=== PATIENT | male | born 1935 | race Caucasian/White ===

== ENCOUNTER → 2017-05-18 | Outpatient (CLI) | payer MEDICARE ==
[~2017-05-18] MED LIST: ASPIRIN; LEVO175T9 PO; LIOT5TAB8 PO; MELO-106 PO; MULTIVITAMIN; RANI150T7 PO
== END | disposition home or self-care (01) ==
LOC: RAH 13:49
PROVIDERS: ATTEND Internal Medicine
DX: N20.0 Calculus of kidney (principal)
CPT/HCPCS: 76770

== ENCOUNTER → 2023-03-03 | Outpatient (CLI) | payer OTHER ==
[~2023-03-03] MED LIST changes: +LIOT5TAB11 PO; -LIOT5TAB8 PO
== END | disposition home or self-care (01) ==
LOC: SHCH 12:42
PROVIDERS: ATTEND Internal Medicine Cardiovascular Disease
DX: I87.2 Venous insufficiency (chronic) (peripheral) (principal); I87.1 Compression of vein
CPT/HCPCS: 93970

== ENCOUNTER 2023-04-20 06:26 | Day surgery (SDC) | payer OTHER ==
[2023-04-17 10:05] LABS: BASOPHILS # (AUTO) 0.02 K/uL (0.00-0.20); BASOPHILS % (AUTO) 0.3 % (0.0-5.0); EOSINOPHILS # (AUTO) 0.03 K/uL (0.00-0.70); EOSINOPHILS % (AUTO) 0.5 % (0.0-8.0); HEMATOCRIT 44.1 % (42-54); IMMATURE GRANULOCYTE ABSOLUTE 0.01 K/uL (0-1); LYMPHOCYTES # (AUTO) 0.9 K/uL (1.0-4.8); LYMPHOCYTES % (AUTO) 14.2 % (21.0-51.0); MEAN CORPUSCULAR HEMOGLOBIN 30.7 pg (27.0-33.0); MEAN CORPUSCULAR HGB CONC 32.4 g/dL (32.0-36.0); MEAN CORPUSCULAR VOLUME 94.6 fL (79-99); MONOCYTES # (AUTO) 0.7 K/uL (0.1-1.0); MONOCYTES % (AUTO) 10.1 % (3.0-13.0); NEUTROPHILS # (AUTO) 4.9 K/uL (1.8-7.7); NEUTROPHILS % (AUTO) 74.7 % (40.0-77.0); PLATELET COUNT (AUTO) 201 K/uL (130-400); RED BLOOD CELL COUNT(AUTO) 4.66 MIL/uL (4.50-6.20); RED CELL DISTRIBUTION WIDTH 13.7 % (11.0-15.5); WHITE BLOOD COUNT (AUTO) 6.6 K/uL (4.8-10.8)
[2023-04-17 10:09] LABS: CREATININE 0.8 mg/dL (0.5-1.5); POTASSIUM 3.7 mmol/L (3.5-5.1)
[2023-04-17 10:15] VITALS: BP 155/77; PULSE 105; RESP 18
[2023-04-17 10:44] LABS: INR < 0.93 (0.85-1.15); PROTHROMBIN TIME 10.8 SEC (9.6-11.6)
[2023-04-17 10:46] LABS: PARTIAL THROMBOPLASTIN TIME 28.5 SEC (26.3-35.5)
[2023-04-20] VITALS (9 sets, daily range): BP systolic 106–146; BP diastolic 47–77; PULSE 66–77; RESP 13–17
[~2023-04-20] VITALS: Ht 180.3 cm; Wt 89.4 kg
[~2023-04-20 06:26] MED LIST changes: -ASPIRIN; +LEVO100T12 PO; -LEVO175T9 PO; -MELO-106 PO; -MULTIVITAMIN; -RANI150T7 PO; +VERA40TA5 PO
[2023-04-20] MEDS ORDERED: 0.9%NACL 1000ML 1,000 ML IV ONE (06:31)
[2023-04-20] MEDS ORDERED: LIDOCAINE HCL 1% MDV 50ML VIAL ONE (08:53)
[2023-04-20] MEDS ORDERED: HEPARIN 10,000 UNIT/10ML (1,000 UNIT/ML) VIAL ONE ×3 (08:53→11:48)
[2023-04-20] MEDS ORDERED: MEPERIDINE-PF 25 MG/ML SYG ONE ×4 (09:13→12:03)
[2023-04-20] MEDS ORDERED: MIDAZOLAM HCL 1 MG/ML 2ML VIAL ONE ×4 (09:14→12:04)
[2023-04-20] MEDS ORDERED: ISOPROTERENOL HCL 0.2 MG/ML AMP/VIAL/BAG ONE (10:18)
[2023-04-20] MEDS ORDERED: PROTAMINE SULFATE 10 MG/ML 5 ML VIAL ONE (12:59)
[2023-04-20] MEDS ORDERED: APIX2.5T PO (14:04)
[2023-04-20] MEDS ORDERED: APIXABAN 2.5 MG TABLET PO ONE (21:00)
[2023-04-26] MEDS ORDERED: LATA2.5D14 OP (10:56)
[2023-04-26] MEDS ORDERED: APIX5TAB PO (10:57)
== END 2023-04-20 16:35 | disposition home or self-care (01) ==
LOC: DAH 06:26
PROVIDERS: ATTEND Internal Medicine Cardiovascular Disease
DX: I47.19 Other supraventricular tachycardia (principal); I49.1 Atrial premature depolarization; I87.2 Venous insufficiency (chronic) (peripheral); I10 Essential (primary) hypertension; E03.9 Hypothyroidism, unspecified; I45.10 Unspecified right bundle-branch block; E05.90 Thyrotoxicosis, unspecified without thyrotoxic crisis or storm; I25.2 Old myocardial infarction; Z79.899 Other long term (current) drug therapy; Z79.01 Long term (current) use of anticoagulants; Z82.3 Family history of stroke
CPT/HCPCS: 80048; 85025; 85610; 85730; 36415; 93005; 93653; 93623; 93655; 85347 ×6; C1894 ×5; C1732 ×2; C1730 ×3; A4649 ×2; J7030; J3490 ×2; J2720; J1644 ×4; J2250 ×4; J2175 ×4; A4215; A4222; A4221; A4663; A4216; A4606; A4223 ×3; 99156; 99157

== ENCOUNTER → 2023-06-13 | Outpatient (CLI) | payer OTHER ==
[~2023-06-13] MED LIST changes: +LATA2.5D14 OP; -VERA40TA5 PO
[2023-06-13 12:13] LABS: BASOPHILS # (AUTO) 0.03 K/uL (0.00-0.20); BASOPHILS % (AUTO) 0.7 % (0.0-5.0); EOSINOPHILS # (AUTO) 0.03 K/uL (0.00-0.70); EOSINOPHILS % (AUTO) 0.7 % (0.0-8.0); HEMATOCRIT 42.9 % (42-54); IMMATURE GRANULOCYTE ABSOLUTE 0.01 K/uL (0-1); LYMPHOCYTES % (AUTO) 20.7 % (21.0-51.0); MEAN CORPUSCULAR HEMOGLOBIN 30.4 pg (27.0-33.0); MEAN CORPUSCULAR HGB CONC 31.9 g/dL (32.0-36.0); MEAN CORPUSCULAR VOLUME 95.1 fL (79-99); MONOCYTES # (AUTO) 0.4 K/uL (0.1-1.0); MONOCYTES % (AUTO) 8.5 % (3.0-13.0); NEUTROPHILS # (AUTO) 3.2 K/uL (1.8-7.7); NEUTROPHILS % (AUTO) 69.2 % (40.0-77.0); PLATELET COUNT (AUTO) 259 K/uL (130-400); RED BLOOD CELL COUNT(AUTO) 4.51 MIL/uL (4.50-6.20); RED CELL DISTRIBUTION WIDTH 13.7 % (11.0-15.5); WHITE BLOOD COUNT (AUTO) 4.6 K/uL (4.8-10.8)
[2023-06-13 12:15] LABS: INR <= 0.93 (0.85-1.15); PROTHROMBIN TIME 10.8 SEC (9.6-11.6)
[2023-06-13 12:16] LABS: CREATININE 0.7 mg/dL (0.5-1.5); POTASSIUM 4.1 mmol/L (3.5-5.1)
== END | disposition home or self-care (01) ==
LOC: LAB 10:15
PROVIDERS: ATTEND Internal Medicine Cardiovascular Disease
DX: I87.2 Venous insufficiency (chronic) (peripheral) (principal); I87.1 Compression of vein; I47.10 Supraventricular tachycardia, unspecified; M79.89 Other specified soft tissue disorders
CPT/HCPCS: 36415; 80048; 85025; 85610; 85730

== ENCOUNTER 2025-04-01 21:40 | Observation (INO) | payer OTHER ==
[~2025-04-01] VITALS: Ht 180.3 cm; Wt 80.3 kg
[~2025-04-01 21:40] MED LIST changes: +ASPI-1005 PO; +ATOR40TA69 PO; +DILT120C12 PO; +FURO20TA4 PO; +GABA300S3 PO; -LATA2.5D14 OP; +LATA2.5D7 OP; -LEVO100T12 PO; +LEVO100T4 PO; +PHARMACY COMMUNICATION MISC ONE; +POTA-200 PO; +VIT1CAPS47 PO
[2025-04-01 22:16] LABS: IMMATURE GRANULOCYTE ABSOLUTE 0.01 K/uL (0-1); NUCLEATED RED BLOOD CELLS 0.0 % (0.0-0.19); PLATELET COUNT (AUTO) 298 K/uL (130-400); RED BLOOD CELL COUNT(AUTO) 4.93 MIL/uL (4.50-6.20); RED CELL DISTRIBUTION WIDTH 14.5 % (11.0-15.5); WHITE BLOOD COUNT (AUTO) 5.8 K/uL (4.8-10.8)
--- NOTE | 2025-04-01 22:17 | EKG ---
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
[2025-04-01 22:22] LABS: CREATININE 0.9 mg/dL (0.5-1.3); GLOMERULAR FILTR. RATE CALC 83.0 mL/min (>90); GLUCOSE,RANDOM 121.0 mg/dL (70-105); SODIUM SERUM 140.0 mmol/L (136-145); UREA NITROGEN, BLOOD 19.0 mg/dL (7-18)
[2025-04-01 22:23] LABS: INR 0.97 (0.85-1.15)
[2025-04-01 22:27] LABS: CREATINE KINASE, TOTAL 39.0 U/L (21-232)
--- NOTE | 2025-04-01 22:29 | ERN ---
General Chief Complaint: Palpitations Stated Complaint: PALPITATIONS Time Seen by MD: 21:41 History of Present Illness Initial Comments 89-year-old male who presents for palpitations. Patient says that he has been in his normal state of health. Today he thought episodes of palpitations and some dizziness. No chest pain. He feels a fast heart rate. He reports that episodes last in between one and 5 minutes and wax and wane. EMS was called and found the patient to be in a rapid atrial rhythm a rhino 170. On arrival here he has stable vital signs. Other vital signs stable for EMS. Patient reports he at similar episode a few years ago. He had an ablation done by Dr. De Santiago with good effect. He does take daily diltiazem 180 mg. No blood thinners. Allergies: Coded Allergies: No Known Drug Allergies (Unverified Allergy, Unknown, 01/08/14) Home Meds Active Scripts Atorvastatin Calcium (LIPITOR) 40 Mg Tablet, 40 MG PO HS, #60 TAB Prov:SAHWANDA NUNEZ [facility] 08/09/24 Aspirin (ASPIRIN 81MG CHEW TAB) 81 Mg Tab.chew, 81 MG PO DAILY, #60 TAB.CHEW Prov:SHAWANDA NUNEZ [facility] 08/09/24 Reported Medications Diltiazem HCl (Diltiazem ER) 120 Mg Cap.er.12h, 1 CAP PO DAILY for 30 Days, #30 CAP 0 Refills 08/08/24 Latanoprost (Latanoprost) 0.005 % Drops, 1 DROP OP HS, ML 0 Refills 08/08/24 Gabapentin (Gabapentin) 300 Mg/6 Ml (6 Ml) Solution, 300 MG PO HS, ML 08/08/24 Vit C/E/Zn/Coppr/Lutein/Zeaxan (Preservision Areds 2 Softgel) 250MG-90MG Capsule, 1 EACH PO BID, CAP 08/08/24 Potassium Chloride (Potassium Chloride) 10 Meq Tab.er.prt, 10 MEQ PO ACBKFST 08/08/24 Furosemide (Furosemide) 20 Mg Tablet, 20 MG PO ACBKFST, TAB 08/08/24 Liothyronine Sodium (Liothyronine Sodium) 5 Mcg Tablet, 5 MCG PO ACBKFST, TAB 08/08/24 Levothyroxine Sodium (Synthroid 100 Mcg Tab) 100 Mcg Tablet, 100 MCG PO ACBKFST, TAB 08/08/24 Past Medical History Past Medical History: A-Fib, CAD, Other Medical History Other: SVT Past Surgical History: Other Surgical History Other: CARDIAC ABLATION 2023 DR. DE SANTIAGO, PROSTATE ROS Dictation CONSTITUTIONAL: No chills, no fever, no weakness, no diaphoresis, no malaise. HEAD/FACE: No signs of trauma. EENT: No eye pain, no blurred vision, no tearing, no double vision, no ear pain, no ear discharge, no nose pain, no nasal congestion, no throat pain, no throat swelling, no mouth pain. RESPIRATORY: No cough, no orthopnea, no SOB, no stridor, no wheezing. CARDIOVASCULAR: Palpitations or dizziness, paroxysmal. GASTROINTESTINAL/ABDOMINAL: No abdominal pain, no constipation, no diarrhea, no nausea, no vomiting. GENITOURINARY: No abnormal discharge, no dysuria, no frequent urination, no hematuria. No complaints of pain in the genitals. MUSCULOSKELETAL: No back pain, no gout, no joint pain, no joint swelling, no muscle pain, no muscle stiffness, no neck pain. INTEGUMENTARY: No change in color, no change in hair/nails, no dryness, no lesion, no lumps, no rash. NEUROLOGICAL/PSYCH: No anxiety, not depressed, no emotional problem, no hea dache, no numbness, no pre-existing deficit, no history of seizures, no tremors, no weakness. HEMATOLOGIC/LYMPHATIC: Not anemic, no history of blood clots, no apparent bleeding, no bruising, glands not swollen. All Systems Negative, Except as Noted. Physical Exam Physical Exam Dictation VITAL SIGNS: Reviewed. GENERAL APPEARANCE: Alert, oriented x3, no acute distress. HEAD AND FACE: Non-traumatic. EYES: PERRL, pink conjunctivas, eyelid no trauma, anterior chamber clear. EARS: Pinnas intact and no signs of trauma or erythema. Ear canals clear and no discharge. TMs no erythema. NOSE: No discharge, no bleeding. OROPHARYNX: Mouth normal, teeth no caries, tongue pink. Pharynx clear, no erythema. Tonsils no exudates, no abscesses noted. Mucous membrane moist. NECK: Supple, non-tender, no thyromegaly, no masses, no JVD, no bruits. BREAST: Deferred. CHEST: No tenderness, no crepitus, no paradoxical movement, no retractions. LUNGS: Clear, well-ventilated, symmetric, no rales, no wheezing, no rhonchi, no stridor, good breath sounds bilaterally. HEART: Regular rate, regular rhythm, no murmur, no gallops. VASCULAR: No peripheral edema. ABDOMEN: Soft, positive bowel sounds, nondistended, no guarding, nontender, no rebound, no masses no hepatomegaly, no splenomegaly, no Noriega's sign, no hernias. RECTAL: Deferred. GENITAL: Deferred. NEUROLOGICAL: Normal speech, gross motor function intact, gross sensory function intact. MUSCULOSKELETAL: Neck nontender, full range of motion, back nontender, full range of motion. EXTREMITIES: Nontender, full range of motion. SKIN: Color pink, dry, no turgor, no rash, no lacerations, no abrasions, no contusions. LYMPHATICS: Deferred. Results Laboratory and Microbiology Lab and Micro Result Laboratory Tests Test 04/01/25 22:03 White Blood Count 5.8 K/uL (4.8-10.8) Red Blood Count 4.93 MIL/uL (4.50-6.20) Hemoglobin 15.0 g/dL (14.0-18.0) Hematocrit 45.3 % (42-54) Mean Corpuscular Volume 91.9 fL (79-99) Mean Corpuscular Hemoglobin 30.4 pg (27.0-33.0) Mean Corpuscular Hemoglobin Concent 33.1 g/dL (32.0-36.0) Red Cell Distribution Width 14.5 % (11.0-15.5) Platelet Count 298 K/uL (130-400) Mean Platelet Volume 9.2 fL (7.5-10.5) Immature Granulocyte % (Auto) 0.2 % (0-1) Neutrophils (%) (Auto) 68.7 % (40.0-77.0) Lymphocytes (%) (Auto) 20.2 % (21.0-51.0) L Monocytes (%) (Auto) 9.9 % (3.0-13.0) Eosinophils (%) (Auto) 0.5 % (0.0-8.0) Basophils (%) (Auto) 0.5 % (0.0-5.0) Neutrophils # (Auto) 4.0 K/uL (1.8-7.7) Lymphocytes # (Auto) 1.2 K/uL (1.0-4.8) Monocytes # (Auto) 0.6 K/uL (0.1-1.0) Eosinophils # (Auto) 0.03 K/uL (0.00-0.70) Basophils # (Auto) 0.03 K/uL (0.00-0.20) Absolute Immature Granulocyte (auto 0.01 K/uL (0-1) Nucleated Red Blood Cells 0.0 % (0.0-0.19) Prothrombin Time 10.3 SEC (9.6-11.6) Prothromb Time International Ratio 0.97 (0.85-1.15) Activated Partial Thromboplast Time 25.8 SEC (26.3-35.5) L Sodium Level 140 mmol/L (136-145) Potassium Level 3.7 mmol/L (3.5-5.1) Chloride Level 107 mmol/L (101-111) Carbon Dioxide Level 26 mmol/L (21-32) Blood Urea Nitrogen 19 mg/dL (7-18) H Creatinine 0.9 mg/dL (0.5-1.3) Glomerular Filtration Rate Calc 83 mL/min (>90) Random Glucose 121 mg/dL (70-105) H Total Calcium 8.7 mg/dL (8.5-10.1) Magnesium Level 2.10 mg/dL (1.80-2.40) Total Creatine Kinase 39 U/L (21-232) # Troponin I High Sensitivity 30 ng/L (4-75) B-Type Natriuretic Peptide 68 pg/mL (0-100) MDM CC: On and off palpitations Historian: Patient Comorbidities: Advanced age, cardiac arrhythmia, fluid overload, hypothyroidism Limitations by social determinants of health: None Differential diagnosis: Electrolyte abnormality, arrhythmia, CHF, atrial fibrillation, ACS, thyroid abnormality, other. Initial vital signs stable, pulse 85 sinus on the monitor. While in the ED, patient had an episode of tachycardia. EKG obtained. EKG shows atrial tachycardia, rate 174, right bundle branch block morphology, right axis, no STEMI. Independently interpreted by me. Labs show no leukocytosis no anemia. Coags stable. Chemistry panel shows stable electrolytes. Patient received 20 mg diltiazem push. Converted to sinus rhythm. Chest x-ray per my independent interpretation shows no cardiomegaly pleural effusions or focal infiltrates. Repeat EKG: Irregular sinus type rhythm possibly sick sinus syndrome, rate 73, right bundle-branch block morphology, no STEMI. Independently interpreted by me. Patient is in a paroxysmal SVT rhythm. He has had arrhythmias in the past and he sees Dr. Pratt. We will admit for telemetry monitoring and cardiology consultation. Hospitalist consulted for admission. ED Course Orders Procedure Category Date Status Time Cbc With Differential LAB 04/01/25 Complete 21:43 Prothrombin Time With LAB 04/01/25 Complete INR 21:43 Chest 1vw RAD 04/01/25 Taken 21:43 12 Lead Ekg Tracing- EKG 04/01/25 Complete Technical 21:43 Magnesium LAB 04/01/25 Complete 21:43 Creatine Kinase, Total LAB 04/01/25 Complete 21:43 Troponin I High LAB 04/01/25 Complete Sensitivity 21:43 Urinalysis Profile LAB 04/01/25 Logged 21:43 Partial LAB 04/01/25 Complete Thromboplastin Time 21:43 Basic Metabolic Panel LAB 04/01/25 Complete 21:43 B-Type Natriuretic LAB 04/01/25 Complete Peptide 21:43 Influenza Type A & B, LAB 04/01/25 In Process Rapid 21:43 Thyroid Stimulating LAB 04/01/25 Logged Hormone 22:21 Diltiazem 25mg Inj PHA 04/01/25 Complete (Cardizem 25mg Inj) 22:30 12 Lead Ekg Tracing- EKG 04/01/25 Logged Technical 23:00 Current Medications Medications (Trade) Dose Ordered Sig/Edinson Route PRN Reason Start Time Stop Time Status Last Admin Dose Admin Diltiazem HCl (CARDIzem 25MG INJ) 16 mg ONCE ONCE IVP 04/01/25 22:30 04/01/25 22:31 DC 04/01/25 22:30 Vital Signs Date Time Temp Pulse Resp B/P (MAP) Pulse Ox O2 Delivery O2 Flow Rate FiO2 04/01/25 22:30 150 110/76 04/01/25 21:42 98.1 85 20 110/72 99 0 DX & DISP Disposition: Inpatient (Hospitalist) Departure Impression: Primary Impression: Paroxysmal SVT (supraventricular tachycardia) Critical Time: 30 minutes (Critical Care Procedure NoteAuthorized and Performed by: meTotal critical care time: Approximately 36 minutesDue to a high probability of clinically significant, life threatening deterioration, the patient required my highest level of preparedness to intervene emergently and I personally spent this critical care time directly and personally managing the patient. This critical care time included obtaining a history; examining the patient; pulse oximetry; ordering and review of studies; arranging urgent treatment with development of a management plan; evaluation of patient's response to treatment; frequent reassessment; and, discussions with other provid ers.This critical care time was performed to assess and manage the high probability of imminent, life-threatening deterioration that could result in multi-organ failure. It was exclusive of separately billable procedures and treating other patients and teaching time.Please see MDM section and the rest of the note for further information on patient assessment and treatment.) Condition: Stable Referrals: JUAN RAMON RUTHERFORD (PCP) ANNABELLA JOEL DO Apr 01, 2025 22:29
--- NOTE | 2025-04-01 23:07 | HMCIMG ---
EXAM: CR Chest, 1 view CLINICAL HISTORY: Chest pain. COMPARISON: Chest radiograph dated 08/07/2024. FINDINGS: Mild diaphragmatic elevation and lower lobe compressive atelectasis bilaterally. The lungs show no infiltrates or other acute findings. No pleural effusion or pneumothorax. The cardiomediastinal silhouette is within normal limits. No acute osseous abnormality. IMPRESSION: No acute cardiopulmonary process is evident. Mild diaphragmatic elevation and lower lobe compressive atelectasis bilaterally. Compared to the prior study, there is no significant interval change. /Ponca
[2025-04-01 23:13] LABS: INFLUENZA TYPE A Negative For Type A (NEGATIVE); INFLUENZA TYPE B Negative For Type B (NEGATIVE)
--- NOTE | 2025-04-01 23:16 | HP ---
History of Present Illness Reason for Visit: palpitations History of Present Illness Mr. Ge is a 89-year-old male that was seen and examined today on 04/01/2025. Patient reports that he came to the emergency department with a chief complaint of palpitations. Onset was today at 7:00 p.m.. Location is chest. Duration is constant. Character is described as fluttering. There was no alleviating factors. There was no aggravating factors. Patient reports associated dizziness. Today in the emergency department CBC unremarkable, chemistry unremarkable, EKG showed AFib with a RVR at a rate in the 170s. Patient responded well to one dose of Cardizem 16 mg in the emergency department. Currently patient's heart rate is in the 80s still in atrial fibrillation. 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 Past Medical History Patient History: Family history: Cardiovascular disease MOTHER, Onset:Unknown Sudden MOTHER, Onset:Unknown No Family History of: Cancer Chronic obstructive lung disease Family history: Alzheimer's disease Family history: Asthma Family history: Diabetes mellitus Family history: Hypertension Parkinson's disease Stroke ADDITIONAL PAST MEDICAL HISTORY: [Atrial fibrillation, patient denies any other prior health history] SOCIAL HISTORY: [Negative for smoking. Patient drinks alcohol about twice a week usually two glasses of wine, patient denies drug use. Patient lives with his , Maribell Louise. Patient is typically independent of all his ADLs. Patient denies difficulty pain is bills. SURGICAL HISTORY: [Cardioversion, cardiac ablation, prostate surgery, bilateral knee surgery, thyroidectomy, partial parathyroidectomy] Review of Systems General: No Fever, No Chills, No Night Sweats, No Fatigue, No Malaise, No Appetite, No Other HEENT: No Head Aches, No Visual Changes, No Eye Pain, No Ear Pain, No Dysphasia, No Sinus Congestion, No Post Nasal Drip, No Sore Throat, No Other Pulmonary: No Dyspnea, No Cough, No Pleuritic Chest Pain, No Other Cardiovascular: Palpitations; No: Chest Pain, Orthopnea, Paroxysmal Noc. Dyspnea, Edema, Lt Headedness, Other Gastrointestinal: No: Nausea, Vomiting, Abdominal Pain, Diarrhea, Constipation, Melena, Hematochezia, Other Genitourinary: No Dysuria, No Frequency, No Incontinence, No Hematuria, No Retention, No Other Musculoskeletal: No: other, neck pain, shoulder pain, arm pain, back pain, hand pain, leg pain, foot pain Skin: No Urticaria, No Rash, No Other Neurological: No: Weakness, Numbness, Incoordination, Change in speech, Confusion, Seizures, Other Allergies: Coded Allergies: No Known Drug Allergies (Unverified Allergy, Unknown, 01/08/14) Scheduled Aspirin (Aspirin 81MG Chew Tab), 81 MG PO DAILY Atorvastatin Calcium (Lipitor), 40 MG PO HS Diltiazem HCl (Diltiazem ER), 1 CAP PO DAILY, (Reported) Furosemide (Furosemide), 20 MG PO ACBKFST, (Reported) Gabapentin (Gabapentin), 300 MG PO HS, (Reported) Latanoprost (Latanoprost), 1 DROP OP HS, (Reported) Levothyroxine Sodium (Synthroid 100 Mcg Tab), 100 MCG PO ACBKFST, (Reported) Liothyronine Sodium (Liothyronine Sodium), 5 MCG PO ACBKFST, (Reported) Potassium Chloride (Potassium Chloride), 10 MEQ PO ACBKFST, (Reported) Vit C/E/Zn/Coppr/Lutein/Zeaxan (Preservision Areds 2 Softgel), 1 EACH PO BID, (Reported) Exam Vital Signs Vital Signs Date Time Temp Pulse Resp B/P (MAP) Pulse Ox O2 Delivery O2 Flow Rate FiO2 04/01/25 23:00 70 18 106/72 95 Room Air* 0 21 04/01/25 21:42 98.1 General Appearance: Alert, Oriented X3, Cooperative, mild distress HEENT: Atraumatic, EOMI Respiratory: Clear to auscultation, Normal air movement, NL respiratory effort Cardiovascular: Normal S1, Normal S2, Other (Atrial fibrillation) Abdominal: Normal bowel sounds, Soft, No tenderness Extremities: No edema Skin: No significant lesion Neuro: Normal gait, Normal speech, Strength at 5/5 X4 ext, Sensation intact, Cranial nerves 3-12 NL Psych/Mental Status: Mental status NL, Mood NL, Thoughts/Content NL Assessment/Plan ASSESSMENT: [ AFib with a RVR, POA PLAN: [ Admit patient to pccu as inpatient status. Place patient on telemetry monitoring. Patient will be followed by cardiology service. Consider resuming home medications once they have been reconciled. At time of admission home medications has been reconciled. For now: Metoprolol 12.5 mg by mouth twice daily, 1st dose now Administer metoprolol 5 mg IV every 5 minutes as needed for AFib RVR with heart rate greater than 120 beats per minute max three doses. Aspirin 81 mg by mouth once daily GI prophylaxis, famotidine DVT prophylaxis, Lovenox ADVANCED CARE PLANNING 1. Which of the following were discussed? Hospice Care - Yes Therapeutic options - yes Advance Directives - Yes - patient states he does not have any advance directives in place at this time, however his can make decisions for him if he becomes unable Other discussions - patient wishes to remain a full code at this time 2. Discussed with who? Patient 3. Voluntary nature of this service was explained to the patient? Yes 4. Amount of time spent - ___16 minutes____ 5. Reviewed by Physician? (if this service was performed by NPP) Yes This document was generated in part using voice recognition software, occasional wrong word or sound alike substitutions may have occurred due to the inherent limitations of voice recognition software. Read the chart carefully and recognize using context, where the substitutions have occurred. Although every effort was made to edit the content, wood model maker and typing errors may occur ATTESTATION BY PHYSICIAN I have seen and examined the patient. I reviewed the documentation, medical decision making, and treatment plan as noted by the mid-level provider above. I agree with the findings and plan of care. ] MITCH CONTRERAS [facility] Apr 01, 2025 23:16
[2025-04-01] MEDS ORDERED: MAGNESIUM 2GM PREMIX 50ML 50 ML IV PRN (23:30)
[2025-04-01] MEDS ORDERED: PoTASSium chloRIDE 20MEQ ER 20 MEQ ERTAB PO PRN (23:30)
[2025-04-01] MEDS ORDERED: PoTASSium chl 10% ELIXIR 20MEQ 20 MEQ/15 ML UDCUP PO PRN (23:30)
[2025-04-01] MEDS ORDERED: LACTULOSE 20 GM/30 ML UDCUP PO PRN (23:30)
[2025-04-01 23:34] LABS: APPEARANCE,URINE CLEAR (CLEAR); GLUCOSE, URINE (UA) NEGATIVE (NEGATIVE); LEUKOCYTE ESTERASE ,URINE NEGATIVE Leu/uL (NEGATIVE); NITRATE,URINE NEGATIVE (NEGATIVE); OCCULT BLOOD,URINE NEGATIVE (NEGATIVE)
[2025-04-01 23:41] LABS: ADD UA MICROSCOPIC NO
[2025-04-02] MEDS ORDERED: IOHEXOL 350 MG/ML 100ML INFUS..BTL IV ONE (00:52)
[2025-04-02] MEDS ORDERED: HEParin-NS 1,000 UNIT/500 ML 0 ML IV ONE (00:52)
[2025-04-02] MEDS ORDERED: SODIUM BICARB 50MEQ 50ML VIAL 0 ML ONE (00:52)
[2025-04-02] MEDS ORDERED: LIDOCAINE HCL 400MG/20ML VIAL ONE (00:52)
--- NOTE | 2025-04-02 03:59 | NUR ---
REPORT GIVEN TO SEA MICHAELS AT THIS TIME
[2025-04-02 04:00] VITALS: BP 117/66; PULSE 80; RESP 16; TEMP 98.8
--- NOTE | 2025-04-02 04:10 | NUR ---
PATIENT RECEIVED AT THIS TIME. PATIENT ALERT, ORIENTED AND FOLLOWING COMMANDS. ROOM AIR, AFIB RATE CONTROLLED ON THE BEDSIDE MONITOR. NO COMPLAINTS OF PAIN OR SOB AT THIS TIME. VS STABLE. PATIENT REPORTS NOT HAVING HIS HOME MEDICATIONS WITH HIM AT THIS TIME. NURSE ADVISED TO HAVE FAMILY BRING THEM IN THE AM. WILL FOLLOW UP IN THE AM.
--- NOTE | 2025-04-02 06:50 | NUR ---
patient arrived to unit via wheelchair, assited to restroom by procedure writer. report given to incoming nurse.
[2025-04-02 07:35] LABS: IMMATURE GRANULOCYTE ABSOLUTE 0.02 K/uL (0-1); NUCLEATED RED BLOOD CELLS 0.0 % (0.0-0.19); PLATELET COUNT (AUTO) 281 K/uL (130-400); RED BLOOD CELL COUNT(AUTO) 4.90 MIL/uL (4.50-6.20); RED CELL DISTRIBUTION WIDTH 14.7 % (11.0-15.5); WHITE BLOOD COUNT (AUTO) 5.4 K/uL (4.8-10.8)
[2025-04-02 07:55] LABS: CREATININE 0.8 mg/dL (0.5-1.3); GLOMERULAR FILTR. RATE CALC 86.0 mL/min (>90); GLUCOSE,RANDOM 94.0 mg/dL (70-105); PHOSPHORUS 3.8 mg/dL (2.5-4.9); SODIUM SERUM 145.0 mmol/L (136-145); UREA NITROGEN, BLOOD 20.0 mg/dL (7-18)
[2025-04-02 08:00] VITALS: BP 126/68; PULSE 73; RESP 18; TEMP 97.4
[2025-04-02 08:05] VITALS: O2SAT 98
[2025-04-02] MEDS: FAMOTIDINE 20MG TAB PO SCH (08:05)
[2025-04-02] MEDS: ASPIRIN 81 MG EC TAB PO SCH (08:05)
[2025-04-02] MEDS: ENOXAPARIN SODIUM 40 MG/0.4 ML SYRINGE SQ SCH (08:07)
--- NOTE | 2025-04-02 09:31 | EKG ---
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
--- NOTE | 2025-04-02 09:35 | NUR ---
DCP: HOME Sw states he remains able to complete ADLS on his own. Lives at home with Natali [phone]. Uses no DME or in home care services, reports he is active and drives. [facility] or Betina DOMINGUEZ in [place]. Uses [facility] or [facility] in [place] for rx needs. Pt denies dc needs and will return home at dc
--- NOTE | 2025-04-02 09:47 | CONS ---
[facility]OLOG[facility] CONSULTATION NOTE Date Patient Seen: Apr 02, 2025 Time of Visit: 09:44 Reason for Consultation: PSVT History of Present Illness: Patient is a 89-year-old male established at the [facility] with Dr. Desai. He has a past medical history of coronary artery disease by coronary CTA (70-80% proximal OM1, proximal LAD 20-30%, proximal D1 20-30%), venous insufficiency, remote spontaneous subarachnoid hemorrhage, venous insufficiency with history of ablation, minimal compression of the deep venous system, history of paroxysmal SVT requiring adenosine ni the past, status post ablation by Dr. Lynch in 2023 on diltiazem 180 mg daily, right bundle branch block, mild LV systolic dysfunction with the EF of 45-50% (previously 55-60 in 2022) and grade 1 diastolic dysfunction, moderate left atrial enlargement and only minimal regurgitant valvular heart disease. Patient presented with complaint of palpitations, tachycardia, and associated dizziness with multiple episodes lasting approximately 5 minutes duration. Patient received a total of 2 mg diltiazem push and converted to sinus rhythm. WBC count normal, potassium 3.7-4.2, magnesium 2.1, TSH normal at 3.68. High sensitivity troponin negative. BNP negative at 68. Influenza a/B negative. Past Medical History: coronary artery disease by coronary CTA (70-80% proximal OM1, proximal LAD 20- 30%, proximal D1 20-30%), venous insufficiency, remote spontaneous subarachnoid hemorrhage, venous insufficiency with history of ablation, minimal compression of the deep venous system, history of paroxysmal SVT requiring adenosine ni the past, status post ablation by Dr. Lynch in 2023 on diltiazem 180 mg daily, right bundle branch block, mild LV systolic dysfunction with the EF of 45-50% (previously 55-60 in 2022) and grade 1 diastolic dysfunction, moderate left atrial enlargement and only minimal regurgitant valvular heart disease, hypothyroidism Past Surgical History: 05/20[address]blation [address] RGSV [address] Valentine in [facility]. 06/20/2023 bilateral common femoral venograms revealing a 36% compression of right external iliac vein otherwise normal study. Both Knees 2012 Prostate Cancer 2007 Family History: History of stroke Social History: Nonsmoker, occasional ETOH Home Meds: Aspirin 81 MG Tablet Delayed Release 1 tablet Orally Once a day Latanoprost Melatonin Potassium Chloride ER 10 MEQ Tablet Extended Release 1 tablet with food Orally daily Furosemide 20 MG Tablet 1 tablet Orally Once a day Gabapentin 100 MG Capsule 1 capsule Orally Once a day PreserVision AREDS 2 - Capsule 1 capsule Orally daily Levothyroxine Sodium 100 MCG Tablet 1 tablet in the morning on an empty stomach Orally Once a day B12 5000 MCG Tablet Sublingual as directed Sublingual once a week , Notes to Pharmacist: 2,5000mcg Prevagen Liothyronine Sodium 5 mcg TABLET 1 tab po daily Oral dilTIAZem HCl ER 180 MG Tablet Extended Release 24 Hour 1 tablet Orally Once a day Current Meds: Current Medications Medications Dose Ordered Sig/Edinson Start Time Stop Time Status Last Admin Potassium Chloride 100 ml @ 100 mls/hr AD PRN 04/01/25 23:30 05/01/25 23:29 Potassium Chloride 20 meq AD PRN 04/01/25 23:30 05/01/25 23:29 Potassium Chloride 20 meq AD PRN 04/01/25 23:30 05/01/25 23:29 Magnesium Sulfate 50 ml @ 0 mls/hr PROTOCOL PRN 04/01/25 23:30 05/01/25 23:29 Acetaminophen 650 mg Q6H PRN 04/01/25 23:30 05/01/25 23:29 Aspirin 81 mg DAILY 04/02/25 09:00 05/02/25 08:59 04/02/25 08:05 Enoxaparin Sodium 40 mg DAILY 04/02/25 09:00 05/02/25 08:59 04/02/25 08:07 Famotidine 20 mg DAILY 04/02/25 09:00 05/02/25 08:59 04/02/25 08:05 Hydralazine HCl 10 mg Q6H PRN 04/01/25 23:30 05/01/25 23:29 Lactulose 20 gm BID PRN 04/01/25 23:30 05/01/25 23:29 Morphine Sulfate 2 mg Q4H PRN 04/01/25 23:30 04/08/25 23:29 Ondansetron HCl 4 mg Q6H PRN 04/01/25 23:30 05/01/25 23:29 Metoprolol Tartrate 12.5 mg BID 04/02/25 09:00 05/02/25 08:59 04/02/25 08:05 Metoprolol Tartrate 5 mg Q5M PRN 04/01/25 23:30 Zolpidem Tartrate 5 mg HS PRN 04/02/25 02:00 05/02/25 01:59 Review of Systems: CONST: [No fever, fatigue, or weight changes.] EYES: [No recent vision problems.] C/V: [No chest pain, palpitations (resolved), or edema.] RESP: [No cough, congestion, wheezing or shortness of breath.] GI: [No abdominal pain, nausea, vomiting.] NEURO: [No headache, focal numbness or weakness, dizziness HEME: [No abnormal bruising or bleeding.] Physical Examination: GENERAL: [No acute distress.] HEAD: [Normal with no signs of head trauma.] EYES: [PERRLA, EOMI, conjunctiva and sclera normal.] ENT: [Hearing grossly intact, normal oropharynx.] NECK: [Normal carotid upstrokes without bruits.] LUNGS: [Clear breath sounds bilaterally. . No wheezes, or rhonchi.] HEART: [Normal rate and rhythm. Normal S1 and S2 without murmurs, gallop or rub.] VASC: [Peripheral pulses +2 bilaterally.] EXT: [No clubbing, cyanosis or edema.] SKIN: [No rashes or lesions noted.] NEURO: [Awake, alert, and oriented x3. No focal sensory or strength deficits noted.] Vital Signs (last 8hr) Date Time Temp Pulse Resp B/P (MAP) Pulse Ox O2 Delivery O2 Flow Rate FiO2 04/02/25 08:00 97.3 73 18 126/68 96 Room Air 21 04/02/25 04:00 98.8 80 16 117/66 92 Room Air 04/02/25 03:40 62 17 113/73 97 Room Air* 0 21 04/02/25 02:48 76 15 118/62 97 Room Air* 0 21 Laboratory: [ ] Hematology Labs: Test 04/02/25 07:28 Range/Units White Blood Count 5.4 4.8-10.8 K/uL Red Blood Count 4.90 4.50-6.20 MIL/uL Hemoglobin 14.9 14.0-18.0 g/dL Hematocrit 46.6 42-54 % Mean Corpuscular Volume 95.1 79-99 fL Mean Corpuscular Hemoglobin 30.4 27.0-33.0 pg Mean Corpuscular Hemoglobin Concent 32.0 32.0-36.0 g/dL Red Cell Distribution Width 14.7 11.0-15.5 % Platelet Count 281 130-400 K/uL Mean Platelet Volume 8.9 7.5-10.5 fL Immature Granulocyte % (Auto) 0.4 0-1 % Neutrophils (%) (Auto) 61.6 40.0-77.0 % Lymphocytes (%) (Auto) 24.9 21.0-51.0 % Monocytes (%) (Auto) 11.9 3.0-13.0 % Eosinophils (%) (Auto) 0.6 0.0-8.0 % Basophils (%) (Auto) 0.6 0.0-5.0 % Neutrophils # (Auto) 3.3 1.8-7.7 K/uL Lymphocytes # (Auto) 1.3 1.0-4.8 K/uL Monocytes # (Auto) 0.6 0.1-1.0 K/uL Eosinophils # (Auto) 0.03 0.00-0.70 K/uL Basophils # (Auto) 0.03 0.00-0.20 K/uL Absolute Immature Granulocyte (auto 0.02 0-1 K/uL Nucleated Red Blood Cells 0.0 0.0-0.19 % Chemistry Labs: Test 04/02/25 07:28 04/01/25 22:03 Range/Units Sodium Level 145 136-145 mmol/L Potassium Level 4.2 3.5-5.1 mmol/L Chloride Level 106 101-111 mmol/L Carbon Dioxide Level 31 21-32 mmol/L Blood Urea Nitrogen 20 H 7-18 mg/dL Creatinine 0.8 0.5-1.3 mg/dL Glomerular Filtration Rate Calc 86 >90 mL/min Random Glucose 94 70-105 mg/dL Total Calcium 8.7 8.5-10.1 mg/dL Phosphorus Level 3.8 2.5-4.9 mg/dL Magnesium Level 2.20 1.80-2.40 mg/dL Total Creatine Kinase 39 # 21-232 U/L Troponin I High Sensitivity 30 4-75 ng/L B-Type Natriuretic Peptide 68 0-100 pg/mL Thyroid Stimulating Hormone (TSH) 3.68 # 0.36-3.74 uIU/mL Coagulation Labs: Test 04/01/25 22:03 Range/Units Prothrombin Time 10.3 9.6-11.6 SEC Prothromb Time International Ratio 0.97 0.85-1.15 Activated Partial Thromboplast Time 25.8 L 26.3-35.5 SEC Diagnostics / Radiology: IMPRESSION: No acute cardiopulmonary process is evident. Mild diaphragmatic elevation and lower lobe compressive atelectasis bilaterally. Compared to the prior study, there is no significant interval change. /Adel DICTATED BY: MICHAEL LYN Jr., MD DATE: 04/02/256 Assessment: Paroxysmal SVT History of atrial tachycardia Mild left ventricular systolic function with known LVEF of 45 50% Branch coronary artery disease by prior coronary CT angiography Venous insufficiency, history of superficial venous intervention without any significant deep venous disease Hypothyroidism, normal TSH Plan: Continue home dose of diltiazem Continue metoprolol low dose, however his ambulatory BPs have not been elevated and caution subsequent orthostatic hypotension given his advanced age. Will add antiarrhythmic dronedarone 400mg PO BID. Unclear if patient can receive this from pharmacy expeditiously due to holiday therefore samples will be provided at bedside. OK for discharge once samples received. Outpatient follow up 2 weeks [facility]. ISAMAR MADRID DO Apr 02, 2025 09:47
[2025-04-02 11:59] VITALS: BP 119/70; PULSE 58; RESP 16; TEMP 97.9
[2025-04-02] MEDS ORDERED: METO25 PO (13:28)
--- NOTE | 2025-04-02 13:35 | DS ---
Discharge Summary Hospital Course Summary: The patient is an 89-year-old male who presented with palpitations and dizziness. Initial EKG demonstrated atrial fibrillation with rapid ventricular response with heart rates in the 170s. He responded appropriately to IV diltiazem in the emergency department with rate control and subsequent conversion to sinus rhythm. Laboratory evaluation including CBC, CMP, magnesium, TSH, BNP, and high?sensitivity troponin were unremarkable. Chest X-ray showed no acute cardiopulmonary process. Cardiology was consulted. Based on recurrent tachyarrhythmia history, cardiology recommended continuation of home diltiazem, low-dose metoprolol with caution due to age, and initiation of dronedarone (Multaq) 400 mg PO twice daily. Due to pharmacy limitations related to the holiday, samples were provided at bedside. The patient remained hemodynamically stable on telemetry with no recurrent palpitations, chest pain, or dizziness. He was deemed medically stable for discharge. Manager Order(s): [facility] Assessment/Plan: Discharge Diagnosis: Paroxysmal supraventricular tachycardia History of atrial tachycardia Atrial fibrillation, resolved RVR Mild left ventricular systolic dysfunction (EF 4550%) Coronary artery disease (by prior CTA) Hypothyroidism Discharge Instructions: Discharge Instructions Activity as tolerated Cardiac diet Monitor for palpitations, dizziness, chest pain, syncope, or shortness of breath Return to ER for worsening symptoms Follow-Up [facility]iology with Dr. Desai or Dr. Nice in 2 weeks Primary care follow?up as scheduled Disposition Discharged home. Home Medications: Active Scripts Atorvastatin Calcium (LIPITOR) 40 Mg Tablet, 40 MG PO HS, #60 TAB Prov:[facility] 08/09/24 Aspirin (ASPIRIN 81MG CHEW TAB) 81 Mg Tab.chew, 81 MG PO DAILY, #60 TAB.CHEW Prov:[facility]ANDA [facility] 08/09/24 Reported Medications Diltiazem HCl (Diltiazem ER) 120 Mg Cap.er.12h, 1 CAP PO DAILY for 30 Days, #30 CAP 0 Refills 08/08/24 Latanoprost (Latanoprost) 0.005 % Drops, 1 DROP OP HS, ML 0 Refills 08/08/24 Gabapentin (Gabapentin) 300 Mg/6 Ml (6 Ml) Solution, 300 MG PO HS, ML 08/08/24 Vit C/E/Zn/Coppr/Lutein/Zeaxan (Preservision Areds 2 Softgel) 250MG-90MG Capsule, 1 EACH PO BID, CAP 08/08/24 Potassium Chloride (Potassium Chloride) 10 Meq Tab.er.prt, 10 MEQ PO ACBKFST 08/08/24 Furosemide (Furosemide) 20 Mg Tablet, 20 MG PO ACBKFST, TAB 08/08/24 Liothyronine Sodium (Liothyronine Sodium) 5 Mcg Tablet, 5 MCG PO ACBKFST, TAB 08/08/24 Levothyroxine Sodium (Synthroid 100 Mcg Tab) 100 Mcg Tablet, 100 MCG PO ACBKFST, TAB 08/08/24 New Medications: Metoprolol Tartrate (Lopressor) 25 Mg Tab 12.5 MG PO BID, #60 TAB 0 Refills Continued Medications: Aspirin (Aspirin 81MG Chew Tab) 81 Mg Tab.chew 81 MG PO DAILY, #60 TAB.CHEW Atorvastatin Calcium (Lipitor) 40 Mg Tablet 40 MG PO HS, #60 TAB Diltiazem HCl (Diltiazem ER) 120 Mg Cap.er.12h 1 CAP PO DAILY for 30 Days, #30 CAP 0 Refills Furosemide (Furosemide) 20 Mg Tablet 20 MG PO ACBKFST, TAB Gabapentin (Gabapentin) 300 Mg/6 Ml (6 Ml) Solution 300 MG PO HS, ML Latanoprost (Latanoprost) 0.005 % Drops 1 DROP OP HS, ML 0 Refills Levothyroxine Sodium (Synthroid 100 Mcg Tab) 100 Mcg Tablet 100 MCG PO ACBKFST, TAB Liothyronine Sodium (Liothyronine Sodium) 5 Mcg Tablet 5 MCG PO ACBKFST, TAB Potassium Chloride (Potassium Chloride) 10 Meq Tab.er.prt 10 MEQ PO ACBKFST Vit C/E/Zn/Coppr/Lutein/Zeaxan (Preservision Areds 2 Softgel) 250MG-90MG Capsule 1 EACH PO BID, CAP Time spent arranging discharge: 31-60 minutes ATTESTATION BY PHYSICIAN I have seen and examined the patient. I reviewed the documentation, medical decision making, and treatment plan as noted by the mid-level provider above. I agree with the findings and plan of care. Harmony Blake MD, [facility] Apr 02, 2025 13:35
[2025-04-02] MEDS ORDERED: DRON400T7 PO (15:56)
--- NOTE | 2025-04-02 16:25 | NUR ---
DISCHARGE Discharge instructions given to patient and patient's spouse. Both verbalized knowledge and understanding. Patient was given Multaq sample doses by Dr. Nice as patient is to start taking medication. Patient's belongings gathered. Patient escorted via wheelchair by MAINS AND SERVICE SUPERVISOR. Patient discharged now.
== END 2025-04-02 16:20 | disposition home or self-care (01) ==
LOC: EDH 21:40 → INTOOBSV 23:04 → EDHIP 23:04 → 2DH 04-02 06:50
PROVIDERS: ADMIT Internal Medicine; ATTEND Internal Medicine
DX: I47.10 Supraventricular tachycardia, unspecified (principal); I48.91 Unspecified atrial fibrillation; I25.10 Atherosclerotic heart disease of native coronary artery without angina pectoris; E03.9 Hypothyroidism, unspecified; R00.2 Palpitations; R42 Dizziness and giddiness; I87.2 Venous insufficiency (chronic) (peripheral); Z79.82 Long term (current) use of aspirin; Z79.899 Other long term (current) drug therapy; Z85.46 Personal history of malignant neoplasm of prostate; Z98.890 Other specified postprocedural states
CPT/HCPCS: 96374; 84443; 82550; 83735 ×2; 84484; 80048 ×2; 83880; 85025 ×2; 85610; 85730; 87804 ×2; 81003; 36415 ×2; 71045; 99291; 93005 ×2; 96372; 84100; J3490; G0378 ×3; J1644 ×2; J1650; Q9967